=== PATIENT | female | born 1960 | race Caucasian/White ===

== ENCOUNTER → 2022-02-17 | Day surgery (SDC) | payer MEDICARE, MEDICAID ==
[2022-02-16 10:25] LABS: Urine WBC None Seen /hpf (0 - 5)
[2022-02-16 10:34] LABS: Basophils # (auto) 0.1 10 ^3/uL (0-0.2); Basophils % (auto) 0.7 % (0.0-2.0); Eosinophils # (auto) 0 10 ^3/uL (0-0.8); Eosinophils % (auto) 0.5 % (0.0-7.0); Hemoglobin 14.2 g/dL (12.2-16.2); Lymphocytes # (auto) 1.3 10 ^3/uL (0.4-5.4); Mean Corpuscular Hemoglobin 29.9 pg (28.0-32.0); Mean Corpuscular Hgb Conc. 34.7 g/dL (32.0-36.0); Mean Corpuscular Volume 86.2 fL (80.0-100.0); Monocytes # (auto) 0.7 10 ^3/uL (0-1.3); Neutrophils # (auto) 7.2 10 ^3/uL (1.6-8.6); Neutrophils % (auto) 77.8 % (37.0-80.0); Nucleated Red Blood Cells % 0.1 %; Red Blood Cells 4.75 10^6/uL (4.0-5.20); Red Cell Distribution Width 13.4 % (11.8-14.3); White Blood Cell 9.3 10^3/uL (4.4-10.8)
[2022-02-16 10:40] LABS: Urine Bacteria NONE SEEN /hpf (None Seen); Urine Blood Negative /uL (Negative); Urine Specific Gravity 1.002 (1.001-1.035)
[2022-02-16 10:48] LABS: INR 1.05 (0.9-1.15); Partial Thromboplastin Time 25.6 sec (23.6-33.0)
[2022-02-16 11:03] LABS: Albumin 3.9 g/dL (3.4-5.0); Calcium 8.6 mg/dL (8.5-10.1); Potassium 4.2 mmol/L (3.5-5.1)
[2022-02-16 11:06] LABS: BUN/Creatinine Ratio 10.4; Bilirubin, Total 0.7 mg/dL (0.2-1.0); Total Protein 7.3 g/dL (6.4-8.2)
[~2022-02-17] VITALS: Ht 172.7 cm; Wt 109.8 kg
[~2022-02-17] MED LIST: ASCO500T11 PO; BUPIVACAINE HCL 50 ML ONE; CYAN100056 PO; DexAMETHasone SOD PHOS 10MG/1ML VIAL INJ ONE; HYDROmorphone HCL 2 MG/ML VL IV PRN; LANS30CA57 PO; LEFL20TA PO; LISI20TA28 PO; METOCLOPRAMIDE HCL 5MG/ml INJ 2ml VIAL IV PRN; MIDAZOLAM HCL 2MG/2ML 2ml VIAL (1mg/ml) ONE; MONT-8 OR; MORPHINE SULFATE 4 MG/ML SYR/VIAL IV PRN; NEOMYCIN-BACITRACIN-POLYM 15GM TOP OINT TOP ONE; ONDANSETRON HCL 4 MG/2 ML VIAL ONE; POLY33504 PO; POTA10TA51 PO; PROPOFOL 10 MG/ML 20 ML IV ONE; SENN-58 PO; SODIUM CHLORIDE LOCK 10 ML ONE; [UNRECOGNIZED DRUG - CODE] SC; ceFAZolin 1GM/50ML 100 ML IV ONE; fentaNYL CITRATE 100 MCG/2 ML VL IV PRN; fentaNYL CITRATE 100 MCG/2 ML VL ONE
[2022-02-17 09:00] VITALS: BP 142/83
== END | disposition home or self-care (01) ==
LOC: SUR 06:12
PROVIDERS: ATTEND Podiatrist Foot & Ankle Surgery
DX: M89.8X7 Other specified disorders of bone, ankle and foot (principal); M06.9 Rheumatoid arthritis, unspecified; E66.9 Obesity, unspecified; J44.9 Chronic obstructive pulmonary disease, unspecified; I12.9 Hypertensive chronic kidney disease with stage 1 through stage 4 chronic kidney disease, or unspecified chronic kidney disease; N18.2 Chronic kidney disease, stage 2 (mild); L40.9 Psoriasis, unspecified; Z68.37 Body mass index [BMI] 37.0-37.9, adult; Z98.891 History of uterine scar from previous surgery; Z98.890 Other specified postprocedural states; Z88.5 Allergy status to narcotic agent; Z88.8 Allergy status to other drugs, medicaments and biological substances; Z79.899 Other long term (current) drug therapy; Z82.49 Family history of ischemic heart disease and other diseases of the circulatory system; Z20.822 Contact with and (suspected) exposure to COVID-19
CPT/HCPCS: 28104; 36415; 80053; 81001; 85025; 85610; 85730; 88305; 88311; J0690; J1100; J2250; J2405; J2704; J3010; J3490; U0003

== ENCOUNTER → 2023-01-05 | Day surgery (SDC) | payer MEDICARE, MEDICAID ==
[2023-01-04 10:28] LABS: Urine WBC None Seen /hpf (0 - 5)
[2023-01-04 10:42] LABS: Basophils # (auto) 0.1 10 ^3/uL (0-0.2); Eosinophils # (auto) 0.1 10 ^3/uL (0-0.8); Eosinophils % (auto) 1.2 % (0.0-7.0); Hematocrit 45.3 % (36.0-46.0); Hemoglobin 15.7 g/dL (12.2-16.2); Lymphocytes # (auto) 2.1 10 ^3/uL (0.4-5.4); Mean Corpuscular Hemoglobin 30.3 pg (28.0-32.0); Mean Corpuscular Hgb Conc. 34.8 g/dL (32.0-36.0); Mean Corpuscular Volume 87.1 fL (80.0-100.0); Monocytes # (auto) 0.7 10 ^3/uL (0-1.3); Monocytes % (auto) 9.2 % (0.0-12.0); Neutrophils # (auto) 4.6 10 ^3/uL (1.6-8.6); Neutrophils % (auto) 60.6 % (37.0-80.0); Nucleated Red Blood Cells % 0.1 %; Red Cell Distribution Width 13.4 % (11.8-14.3); White Blood Cell 7.5 10^3/uL (4.4-10.8)
[2023-01-04 10:56] LABS: INR 0.99 (0.9-1.15); Partial Thromboplastin Time 27.8 sec (24.6-33.4)
[2023-01-04 11:15] LABS: Urine Bacteria FEW /hpf (None Seen); Urine Blood Negative /uL (Negative); Urine Specific Gravity 1.005 (1.001-1.035)
[2023-01-04 11:25] LABS: Albumin 4.2 g/dL (3.4-5.0); BUN/Creatinine Ratio 13.9; Calcium 8.9 mg/dL (8.5-10.1); Potassium 3.7 mmol/L (3.5-5.1)
[2023-01-04 11:28] LABS: Bilirubin, Total 0.5 mg/dL (0.2-1.0); Total Protein 7.3 g/dL (6.4-8.2)
[~2023-01-05] VITALS: Ht 172.7 cm; Wt 112.0 kg
[~2023-01-05] MED LIST changes: +BACITRACIN TOP OINT 1 UD PKG TOP ONE; +BUPIVACAINE 0.5% P/F INJ 10 ML VIAL ONE; -BUPIVACAINE HCL 50 ML ONE; +CHLO25TA2 PO; +CLINDAMYCIN 600MG IV 50 ML IV ONE; +DEXL30CA4 PO; +DILT-15 PO; -DexAMETHasone SOD PHOS 10MG/1ML VIAL INJ ONE; +FLUT110A IN; -HYDROmorphone HCL 2 MG/ML VL IV PRN; -LANS30CA57 PO; +LINA1CAP2 PO; -LISI20TA28 PO; +MAGN400T40 OR; -METOCLOPRAMIDE HCL 5MG/ml INJ 2ml VIAL IV PRN; -MORPHINE SULFATE 4 MG/ML SYR/VIAL IV PRN; +MORPHINE SULFATE INJ 2 MG/ml SYRG IV PRN; -NEOMYCIN-BACITRACIN-POLYM 15GM TOP OINT TOP ONE; +ONDANSETRON HCL 4 MG/2 ML VIAL IV PRN; -ONDANSETRON HCL 4 MG/2 ML VIAL ONE; -SODIUM CHLORIDE LOCK 10 ML ONE; -ceFAZolin 1GM/50ML 100 ML IV ONE; -fentaNYL CITRATE 100 MCG/2 ML VL IV PRN; +methylPREDNISolone ACETATE 80 MG/ML VL ONE
[2023-01-05 11:15] VITALS: BP 142/81
== END | disposition home or self-care (01) ==
LOC: SUR 06:51
PROVIDERS: ATTEND Podiatrist Foot & Ankle Surgery
DX: M25.571 Pain in right ankle and joints of right foot (principal); M67.271 Synovial hypertrophy, not elsewhere classified, right ankle and foot; Z20.822 Contact with and (suspected) exposure to COVID-19
CPT/HCPCS: 27626; 36415; 80053; 81001; 85025; 85610; 85730; 88305; J1040; J2250; J2704; J3010; J3490; L3260; U0003

== ENCOUNTER 2023-06-01 06:41 | Day surgery (SDC) | payer MEDICARE, MEDICAID ==
[2023-05-26 13:59] LABS: Basophils # (auto) 0 10 ^3/uL (0-0.2); Basophils % (auto) 0.7 % (0.0-2.0); Eosinophils # (auto) 0.1 10 ^3/uL (0-0.8); Eosinophils % (auto) 1.2 % (0.0-7.0); Hematocrit 41.8 % (36.0-46.0); Hemoglobin 14.2 g/dL (12.2-16.2); Lymphocytes # (auto) 1.6 10 ^3/uL (0.4-5.4); Lymphocytes % (auto) 28.4 % (10.0-50.0); Mean Corpuscular Hemoglobin 29.8 pg (28.0-32.0); Mean Corpuscular Hgb Conc. 33.9 g/dL (32.0-36.0); Mean Corpuscular Volume 87.7 fL (80.0-100.0); Monocytes # (auto) 0.5 10 ^3/uL (0-1.3); Monocytes % (auto) 8.5 % (0.0-12.0); Neutrophils # (auto) 3.4 10 ^3/uL (1.6-8.6); Neutrophils % (auto) 61.2 % (37.0-80.0); Nucleated Red Blood Cells % 0.1 %; Red Blood Cells 4.77 10^6/uL (4.0-5.20); Red Cell Distribution Width 13.6 % (11.8-14.3); White Blood Cell 5.6 10^3/uL (4.4-10.8)
[2023-05-26 14:13] LABS: Urine Bacteria FEW /hpf (None Seen); Urine Blood Negative /uL (Negative); Urine Clarity Clear (Clear); Urine Color Colorless (Yellow); Urine Protein, UAD Negative (Negative); Urine Specific Gravity 1.005 (1.001-1.035); Urine Urobilinogen Normal (Negative); Urine WBC <1 /hpf (0 - 5); Urine pH 6.5 (5.0-8.0)
[2023-05-26 14:16] LABS: INR 1.03 (0.9-1.15); Prothrombin Time 10.8 sec (9.3-11.8)
[2023-05-26 14:23] LABS: Albumin 3.9 g/dL (3.4-5.0); Potassium 3.5 mmol/L (3.5-5.1)
[2023-05-26 14:33] LABS: Bilirubin, Total 0.6 mg/dL (0.2-1.0); Total Protein 6.9 g/dL (6.4-8.2)
[~2023-06-01] VITALS: Ht 172.7 cm; Wt 111.1 kg
[~2023-06-01 06:41] MED LIST changes: -BACITRACIN TOP OINT 1 UD PKG TOP ONE; -BUPIVACAINE 0.5% P/F INJ 10 ML VIAL ONE; -CLINDAMYCIN 600MG IV 50 ML IV ONE; -MIDAZOLAM HCL 2MG/2ML 2ml VIAL (1mg/ml) ONE; -MORPHINE SULFATE INJ 2 MG/ml SYRG IV PRN; -ONDANSETRON HCL 4 MG/2 ML VIAL IV PRN; -PROPOFOL 10 MG/ML 20 ML IV ONE; -fentaNYL CITRATE 100 MCG/2 ML VL ONE; -methylPREDNISolone ACETATE 80 MG/ML VL ONE
[2023-06-01] MEDS ORDERED: KETAMINE 50mg/ML 10ml Vial (500mg/10ml) IV ONE (06:42)
[2023-06-01] MEDS ORDERED: ceFAZolin 1GM/50ML 100 ML IV ONE (07:35)
[2023-06-01] MEDS ORDERED: PROPOFOL 10 MG/ML 20 ML IV ONE ×2 (07:49→08:55)
[2023-06-01] MEDS ORDERED: DexAMETHasone SOD PHOS 10MG/1ML VIAL INJ ONE (07:50)
[2023-06-01] MEDS ORDERED: KETOROLAC TROMETH 30 MG/ML 1ML VIAL ONE (07:50)
[2023-06-01] MEDS ORDERED: GLYCOPYRROLATE 0.2 MG/ML 1ML VIAL ONE (07:50)
[2023-06-01] MEDS ORDERED: ONDANSETRON HCL 4 MG/2 ML VIAL ONE (07:50)
[2023-06-01] MEDS ORDERED: ROPIVACAINE 0.5% (5MG/ML) 20ML AMPULE IJ ONE (08:07)
[2023-06-01] MEDS ORDERED: ESMOLOL HCL 10 ML IV ONE (08:59)
[2023-06-01] MEDS ORDERED: LIDOCAINE 2%HCL (LOCAL ANESTH.) INJ 10ml MDV ONE (08:59)
[2023-06-01 09:22] VITALS: TEMP 97.1; O2SAT 100
[2023-06-01] MEDS ORDERED: NALOXONE HCL 0.4 MG/ML VIAL IV PRN (09:30)
[2023-06-01] MEDS ORDERED: oxyCODONE HCL 5MG TAB PO PRN (09:30)
[2023-06-01] MEDS ORDERED: ONDANSETRON HCL 4 MG/2 ML VIAL IV PRN (09:30)
[2023-06-01] MEDS ORDERED: HYDROmorphone HCL 2 MG/ML VL/or syr IV PRN (09:30)
[2023-06-01] MEDS ORDERED: FLUMAZENIL 0.1 MG/ML INJ 10ML MDV IV PRN (09:30)
[2023-06-01] MEDS ORDERED: fentaNYL CITRATE 100 MCG/2 ML VL IV PRN (09:30)
[2023-06-01] MEDS ORDERED: LABETALOL HCL 5 MG/ML 4ML SYRINGE IV PRN (09:30)
[2023-06-01] MEDS ORDERED: hydrALAZINE HCL 20 MG/ML VL IV PRN (09:30)
[2023-06-01] MEDS ORDERED: ePHEDrine SULFATE 50 MG/ML AMP IV PRN (09:30)
[2023-06-01 10:27] VITALS: BP 136/84; PULSE 63; RESP 15; O2SAT 98
== END 2023-06-01 10:32 | disposition home or self-care (01) ==
LOC: SUR 06:41
PROVIDERS: ATTEND Podiatrist Foot & Ankle Surgery
DX: M20.5X2 Other deformities of toe(s) (acquired), left foot (principal); M20.22 Hallux rigidus, left foot; M25.775 Osteophyte, left foot; M19.072 Primary osteoarthritis, left ankle and foot; M79.672 Pain in left foot; E11.8 Type 2 diabetes mellitus with unspecified complications
CPT/HCPCS: 28289; 36415; 80053; 81001; 85025; 85610; 85730; 88305; 88311; J0690; J1100; J1170; J1885; J2001; J2405; J2704; J2795

== ENCOUNTER → 2023-10-05 | Day surgery (SDC) | payer MEDICARE, MEDICAID ==
[2023-10-04 15:06] LABS: Urine WBC None Seen /hpf (0 - 5)
[2023-10-04 15:10] LABS: Basophils # (auto) 0.1 10 ^3/uL (0-0.2); Basophils % (auto) 1.1 % (0.0-2.0); Eosinophils # (auto) 0.2 10 ^3/uL (0-0.8); Hematocrit 43.7 % (36.0-46.0); Hemoglobin 14.9 g/dL (12.2-16.2); Lymphocytes # (auto) 2.7 10 ^3/uL (0.4-5.4); Lymphocytes % (auto) 35.4 % (10.0-50.0); Mean Corpuscular Hemoglobin 30.3 pg (28.0-32.0); Mean Corpuscular Hgb Conc. 34.1 g/dL (32.0-36.0); Mean Corpuscular Volume 88.8 fL (80.0-100.0); Monocytes # (auto) 0.7 10 ^3/uL (0-1.3); Monocytes % (auto) 8.8 % (0.0-12.0); Neutrophils # (auto) 4.1 10 ^3/uL (1.6-8.6); Neutrophils % (auto) 52.7 % (37.0-80.0); Nucleated Red Blood Cells % 0.2 %; Red Blood Cells 4.92 10^6/uL (4.0-5.20); Red Cell Distribution Width 13.4 % (11.8-14.3); White Blood Cell 7.7 10^3/uL (4.4-10.8)
[2023-10-04 15:21] LABS: Urine Bacteria NONE SEEN /hpf (None Seen); Urine Blood Negative /uL (Negative); Urine Clarity Clear (Clear); Urine Color Colorless (Yellow); Urine Protein, UAD Negative (Negative); Urine Specific Gravity 1.004 (1.001-1.035); Urine Urobilinogen Normal (Negative)
[2023-10-04 15:27] LABS: INR 1.02 (0.9-1.15); Partial Thromboplastin Time 25.6 SEC (24.5-34.5); Prothrombin Time 10.7 sec (9.3-11.8)
[2023-10-04 16:57] LABS: Alanine Aminotransferase 42 U/L (7-40); Albumin 4.8 g/dL (3.2-4.8); Alkaline Phosphatase 42 U/L (46-116); Anion Gap 8 (5-15); Aspartate Aminotransferase 32 U/L (13-40); BUN/Creatinine Ratio 10.3 (10.0-20.0); Blood Urea Nitrogen 11 mg/dL (9-23); Calcium 9.9 mg/dL (8.5-10.1); Carbon Dioxide 28 mmol/L (20-30); Chloride 106 mmol/L (98-107); Glucose 88 mg/dL (74-106); Potassium 4.4 mmol/L (3.5-5.1); Sodium 142 mmol/L (136-145)
[2023-10-04 16:58] LABS: Bilirubin, Total 0.5 mg/dL (0.2-1.0)
[~2023-10-05] VITALS: Ht 172.7 cm; Wt 113.4 kg
[~2023-10-05] MED LIST changes: -ASCO500T11 PO; +BACITRACIN TOP OINT 1 UD PKG TOP ONE; +CLINDAMYCIN 600MG IV 50 ML IV ONE; -DEXL30CA4 PO; -DILT-15 PO; +GLYCOPYRROLATE 0.2 MG/ML 1ML VIAL ONE; +GOLI50SO IV; +HYDROmorphone HCL 2 MG/ML VL/or syr IV PRN; +KETOROLAC TROMETH 30 MG/ML 1ML VIAL ONE; +LANS30TA8 PO; +LIDOCAINE 1% HCL (LOCAL ANESTH.) INJ 20ML MDV ONE; +LIDOCAINE 2% (LOCAL ANESTH.) PF 5ml SDV ONE; +MIDAZOLAM HCL 2MG/2ML 2ml VIAL (1mg/ml) ONE; -MONT-8 OR; +OLME1TAB69 PO; +ONDANSETRON HCL 4 MG/2 ML VIAL IV PRN; +ONDANSETRON HCL 4 MG/2 ML VIAL ONE; -POLY33504 PO; +PROPOFOL 10 MG/ML 20 ML IV ONE; +RIVA20TA PO; +ROPIVACAINE 0.5% (5MG/ML) 20ML AMPULE IJ ONE; -SENN-58 PO; -[UNRECOGNIZED DRUG - CODE] SC; +ceFAZolin 2 GM/D5W100ml 100 ML IV ONE
[2023-10-05 08:14] VITALS: RESP 17; TEMP 97.6; O2SAT 100
[2023-10-05 09:09] VITALS: BP 132/81; PULSE 82; RESP 11; O2SAT 97
== END | disposition home or self-care (01) ==
LOC: SUR 06:22
PROVIDERS: ATTEND Podiatrist Foot & Ankle Surgery
DX: M25.774 Osteophyte, right foot (principal); I10 Essential (primary) hypertension; K21.9 Gastro-esophageal reflux disease without esophagitis; K44.9 Diaphragmatic hernia without obstruction or gangrene; I48.91 Unspecified atrial fibrillation; M89.9 Disorder of bone, unspecified; Z88.8 Allergy status to other drugs, medicaments and biological substances; Z88.6 Allergy status to analgesic agent; Z79.899 Other long term (current) drug therapy; Z98.890 Other specified postprocedural states
CPT/HCPCS: 28122; 36415; 80053; 81001; 85025; 85610; 85730; J1885; J2001; J2250; J2405; J2704; J2795; J3490; L3260

== ENCOUNTER 2025-05-22 10:01 | Inpatient (IN) | payer MEDICARE, MEDICAID ==
[~2025-05-22] VITALS: Ht 167.6 cm; Wt 112.0 kg
[~2025-05-22 10:01] MED LIST changes: -BACITRACIN TOP OINT 1 UD PKG TOP ONE; -CLINDAMYCIN 600MG IV 50 ML IV ONE; -GLYCOPYRROLATE 0.2 MG/ML 1ML VIAL ONE; -HYDROmorphone HCL 2 MG/ML VL/or syr IV PRN; -KETOROLAC TROMETH 30 MG/ML 1ML VIAL ONE; -LIDOCAINE 1% HCL (LOCAL ANESTH.) INJ 20ML MDV ONE; -LIDOCAINE 2% (LOCAL ANESTH.) PF 5ml SDV ONE; -MIDAZOLAM HCL 2MG/2ML 2ml VIAL (1mg/ml) ONE; -OLME1TAB69 PO; +OLME5TAB22 PO; -ONDANSETRON HCL 4 MG/2 ML VIAL IV PRN; -ONDANSETRON HCL 4 MG/2 ML VIAL ONE; +POTA-36 PO; -POTA10TA51 PO; -PROPOFOL 10 MG/ML 20 ML IV ONE; -ROPIVACAINE 0.5% (5MG/ML) 20ML AMPULE IJ ONE; -ceFAZolin 2 GM/D5W100ml 100 ML IV ONE
--- NOTE | 2025-05-22 11:06 | ECG ---
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
--- NOTE | 2025-05-22 11:08 | ED.PDOC ---
History of Present Illness HPI Comments Patient is a 64-year-old female with a past medical history of rheumatoid arthritis, hypertension, atrial fibrillation, fatty liver presented to the ER with a chief complaint of dizziness with the last week. 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 Patient denied any episode of loss of consciousness. With the last 2 days she has also been having headache across her forehead which is wxnjwlkf-uw-izpije in intensity, nausea, diarrhea with 2 episode of loose stools per day, uyln-ut-upgfyvdg abdominal pain above the umbilical area. Chief Complaint: Dizziness Time Seen by MD: 10:07 Primary Care Provider: Herlinda Cook Reviewed Notes: Nurses Notes, Medications, Allergies Allergies: Coded Allergies: Ceftriaxone (Verified Allergy, Unknown, 06/19/15) Codeine (Verified Allergy, Unknown, 06/19/15) Levofloxacin (Verified Allergy, Unknown, 06/19/15) Home Meds Reported Medications Golimumab (SIMPONI ARIA) 50 Mg/4 Ml Aimee, 50 MG IV Q2M, ML 10/04/23 Lansoprazole (Lansoprazole) 30 Mg Tab, 30 MG PO DAILY, TAB 10/04/23 Olmesartan Medoxomil (Olmesartan Medoxomil) 5 Mg Tab, 5 MG PO DAILY, TAB 10/04/23 Rivaroxaban (XARELTO) 20 Mg Tab, 20 MG PO DAILY, TAB 10/04/23 Fluticasone Propionate (FLOVENT HFA 110Mcg INH) 110 Mcg Ih, 50 MCG IN DAILY, INH 01/04/23 Magnesium Oxide (MAGNESIUM OXIDE) 400 Mg Tab, 400 MG OR DAILY, TAB 01/04/23 Linaclotide Base (Linzess) 72 Mcg Cap, 72 MCG PO, CAP 01/04/23 Chlorthalidone (Chlorthalidone) 25 Mg Tab, 25 MG PO DAILY, TAB 01/04/23 Leflunomide (Arava) 20 Mg Tab, 20 MG PO, TAB 02/16/22 Cyanocobalamin (B-12) 1,000 Mcg Cap, 1000 MCG PO, CAP 02/16/22 Potassium Chloride (POTASSIUM CHLORIDE CR) 10 Meq Tb, 10 MEQ PO, TAB 02/16/22 Information Source: Patient Mode of Arrival: Ambulatory Past Medical History PAST MEDICAL HISTORY: AFIB, Arthritis, HTN Past Medical History (Other): Fatty liver Surgical History: Hysterectomy (Partial) Surgical History (Other): Right toe amputation, surgery for carpal tunnel syndrome LEAD PRINCIPAL TECHNICAL ARCHITECT History: No Pertinent LEAD PRINCIPAL TECHNICAL ARCHITECT History Family History Family History: Unobtainable Social History Smoker: Non-Smoker Alcohol: Denies ETOH Use Drugs: Denies Drug Use Lives In: Home Constitutional: reports: fatigue, weakness EENTM: denies: blurred vision, double vision, ear bleeding, ear discharge, ear drainage, ear pain, ear ringing, eye pain, eye redness, hearing loss, mouth pain, mouth swelling, nasal discharge, nose bleeding, nose congestion, nose pain, photophobia, tearing, throat pain, throat swelling, voice changes, others Respiratory: denies: cough, hemoptysis, orthopnea, SOB at rest, shortness of breath, SOB with excertion, stridor, wheezing, others Cardiovascular: reports: dizzy spells, Dyspnea on exertion Gastrointestinal: reports: abdominal pain, diarrhea, nausea Genitourinary: denies: abnormal vagina bleeding, burning, dyspareunia, dysuria, flank pain, frequency, hematuria, incontinence, pain, , vagina discharge, urgency, others Neurological: reports: dizziness Musculoskeletal: denies: back pain, gout, joint pain, joint swelling, muscle pain, muscle stiffness, neck pain, others Integumetry: denies: bruises, change in color, change in hair/nails, dryness, laceration, lesions, lumps, rash, wounds, others Allergic/Immunocompromised: denies: Difficulty Healing, Frequent Infections, Hives, Itching, others Hematologic/Lymphatic: denies: anemia, blood clots, easy bleeding, easy bruising, swollen glands, others Endocrine: denies: excessive hunger, excessive sweating, excessive thirst, excessive urination, flushing, intolerance to cold, intolerance to heat, unexplained weight gain, unexplained weight loss, others Psychiatric: denies: anxiety, bipolar disorder, depression, hopeless, panic disorder, schizophrenia, sleepless, suicidal, others Physical Exam General Appearance: Mild Distress, Obese HEENT: PERRL/EOMI, Pharynx Normal Neck: Full Range of Motion, Non-Tender, Normal Inspection Respiratory: Chest Non-Tender, Lungs Clear, No Accessory Muscle Use, No Respiratory Distress, Normal Breath Sounds Cardiovascular: No Edema, No JVD, No Murmur, No Gallop, Normal Peripheral Pulses, Regular Rate/Rhythm Breast Exam: Deferred Gastrointestinal: No Organomegaly, No Pulsatile Mass, Normal Bowel Sounds, Soft , Tenderness (Mid abdomen ficf-ye-whjkjhyx tenderness) Genitalia: Deferred Pelvic: Deferred Rectal: Deferred Extremities: No calf tenderness, Normal capillary refill, Normal inspection, Normal range of motion, Non-tender, No pedal edema Neurologic: Alert, health safety coordinator II-XII nml as Tested, Dizziness, Headache, No Motor Deficits, No Sensory Deficits Cerebellar Function: Other (Positive Romberg's,) Reflexes: NOT DONE Skin: Dry, Normal Color, Warm Peripheral Pulses: 2+ carotid (R), 2+ carotid (L), 2+ dorsalis pedis (R), 2+ dorsalis pedis (L), 2+ Radial (R), 2+ Radial (L) Lymphatic: No Adenopathy Was a procedure done? Was a procedure done?: No EKG EKG : Pulse Rate (adult): 69 Bradley: Normal Cardiac Rhythm: NSR Block: RBBB Hypertrophy: None ST: Old, Inf Differential Dx Considerations may include: Acute stroke, electrolyte imbalance, dehydration, UTI, gastroenteritis, X-Ray, Labs, Meds, VS Vital Signs Date Time Temp Pulse Resp B/P (MAP) Pulse Ox O2 Delivery O2 Flow Rate FiO2 05/22/25 10:52 69 05/22/25 10:02 97.5 88 17 176/85 (115) 97 97.5 Lab Test 05/22/25 11:59 05/22/25 11:01 05/22/25 10:41 Range/Units Troponin I High Sensitivity Pending < 3 L </=34 ng/L White Blood Count 4.8 4.4-10.8 10^3/uL Red Blood Count 5.01 4.0-5.20 10^6/uL Hemoglobin 15.3 12.2-16.2 g/dL Hematocrit 44.2 36.0-46.0 % Mean Corpuscular Volume 88.2 80.0-100.0 fL Mean Corpuscular Hemoglobin 30.5 28.0-32.0 pg Mean Corpuscular Hemoglobin Concent 34.6 32.0-36.0 g/dL Red Cell Distribution Width 13.7 11.8-14.3 % Platelet Count 225 140-450 10^3/uL Mean Platelet Volume 8.1 6.9-10.8 fL Neutrophils (%) (Auto) 76.5 37.0-80.0 % Lymphocytes (%) (Auto) 19.5 10.0-50.0 % Monocytes (%) (Auto) 2.6 0.0-12.0 % Eosinophils (%) (Auto) 0.8 0.0-7.0 % Basophils (%) (Auto) 0.6 0.0-2.0 % Neutrophils # (Auto) 3.6 1.6-8.6 10 ^3/uL Lymphocytes # (Auto) 0.9 0.4-5.4 10 ^3/uL Monocytes # (Auto) 0.1 0-1.3 10 ^3/uL Eosinophils # (Auto) 0 0-0.8 10 ^3/uL Basophils # (Auto) 0 0-0.2 10 ^3/uL Nucleated Red Blood Cells 0.1 % Sodium Level 141 136-145 mmol/L Potassium Level 4.2 3.5-5.1 mmol/L Chloride Level 106 98-107 mmol/L Carbon Dioxide Level 29 20-31 mmol/L Anion Gap 6 5-15 Blood Urea Nitrogen 13 9-23 mg/dL Creatinine 1.07 H 0.550-1.02 mg/dL Glomerular Filtration Rate Calc 58 >90 mL/min BUN/Creatinine Ratio 12.1 10.0-20.0 Serum Glucose 113 H 74-106 mg/dL Calcium Level 9.6 8.7-10.4 mg/dL POC Glucose 92 70-106 mg/dl Patient is a 64-year-old female who came to the ER with a chief complaint of dizziness for the last 2 week. On physical examination patient was found to have a positive Romberg's test following which CT head without contrast was done which showed right cerebellar encephalomalacia. Labs including CBC and BMP were grossly normal. As the patient had positive neurological findings and abnormality on CT head showed benefit from Neurological evaluation and a MRI. Neurology will be consulted. Patient was explained about the findings and discussed with the need of inpatient management. She agrees with the plan. Time of 1ST Reevaluation: 12:11 Reevaluation 1ST: Unchanged Patient Education/Counseling: Diagnosis, Treatment, Prognosis Family Education/Counseling: No Family Present SEPSIS Sepsis Screen Date sepsis recognized/suspect: May 22, 2025 Time Sepsis recognized/suspect: 1044 Recent Procedure: No On Antibiotic Therapy: No Respiratory Rate >20: No Heart Rate >90: No Temp<36 C (96.8 F) or >38.3 C: No SBP <90 or MAP <65 mmHG: No New Acute Mental Status Change: No Is the patient on CPAP, BIPAP,: No Physician Orders Urinalysis (05/22/25 10:47) Heplock Iv (05/22/25 10:47) Head Without Contrast (05/22/25 10:47) Troponin-I Hs (05/22/25 11:51) Electrocardigram (05/22/25 12:00) Vital Signs Date Time Temp Pulse Resp B/P (MAP) Pulse Ox O2 Delivery O2 Flow Rate FiO2 05/22/25 10:52 69 05/22/25 10:02 97.5 88 17 176/85 (115) 97 97.5 Laboratory Tests Test 05/22/25 11:01 White Blood Count 4.8 10^3/uL (4.4-10.8) Departure 1 Departure Time of Disposition: 12:30 Impression: Primary Impression: Dizziness Additional Impression: Dehydration Disposition: ADMITTED INPATIENT Condition: Stable Critical Care Note Critical Care Time?: No Stability Stability form required: No Heart Score Heart Score: Heart Score Response (Comments) Value History Slightly Suspicious [address]-Deviation 2 Age 45-64 1 Risk Factors 1 or 2 risk factors 1 Troponin Normal limit 0 Total 4 RAZ REDDY RESIDENT May 22, 2025 11:07
[2025-05-22 11:26] LABS: Hematocrit 44.2 % (36.0-46.0); Hemoglobin 15.3 g/dL (12.2-16.2); Mean Corpuscular Hemoglobin 30.5 pg (28.0-32.0); Mean Corpuscular Volume 88.2 fL (80.0-100.0); Nucleated Red Blood Cells % 0.1 %
[2025-05-22 11:30] LABS: Chloride 106 mmol/L (98-107); Potassium 4.2 mmol/L (3.5-5.1); Sodium 141 mmol/L (136-145)
[2025-05-22 11:31] LABS: Anion Gap 6 (5-15); Carbon Dioxide 29 mmol/L (20-31)
[2025-05-22 11:32] LABS: Calcium 9.6 mg/dL (8.7-10.4)
[2025-05-22 11:37] LABS: BUN/Creatinine Ratio 12.1 (10.0-20.0); Blood Urea Nitrogen 13 mg/dL (9-23)
[2025-05-22 11:38] LABS: Glucose 113 mg/dL (74-106)
--- NOTE | 2025-05-22 11:42 | DVH ---
EXAM: CT HEAD WITHOUT CONTRAST INDICATION: Dizziness, positive romberg TECHNIQUE: CT of the head without intravenous contrast. Coronal and sagittal reformatted images are s ubmitted. Radiation Dose : 1. Head: CT Dose: CTDI volume is 56.8 mGy. Dose-length product is 1117.7 mGy*cm The dose indicators for CT are the volume Computed Tomography (CT) Dose Index (CTDIvol) and the Dose Length Product (DLP), and are measured in units of mGy and mGy-cm, respectively. These indicators are not patient dose, but values generated from the CT scanner acquisition factors. The report includes radiation exposure data for exposures received during this examination. All CT scans at this medical facility are performed using dose modulation techniques as appropriate to a performed exam including the following: Automated exposure control was utilized; adjustment of the MA and/or KV according to patient size; and use of iterative reconstruction technique. COMPARISON: None FINDINGS: There is no evidence of acute intracranial hemorrhage, extra-axial collection, mass effect, midline s hift, herniation or hydrocephalus. Right cerebellar encephalomalacia. The ventricles, sulci and cisterns are age appropriate. The heath-white differentiation is intact. There is mucosal thickening in the left maxillary sinus. The mastoid air cells are clear. No depressed calvarial fracture. The surrounding soft tissues are unremarkable. IMPRESSION: 1. No acute intracranial abnormality.
[2025-05-22] MEDS: SODIUM CHLORIDE 0.9% 500 ML IV ONE (12:45)
[2025-05-22 13:05] LABS: Urine Protein, UAD Negative (Negative)
[2025-05-22] MEDS ORDERED: hydrALAZINE HCL 20 MG/ML VL IV PRN (13:30)
[2025-05-22] MEDS ORDERED: ONDANSETRON HCL 4 MG/2 ML VIAL IV PRN (13:30)
[2025-05-22] MEDS ORDERED: ACETAMINOPHEN 325 MG TAB PO PRN (13:30)
[2025-05-22] MEDS ORDERED: MECLIZINE HCL 25 MG TAB PO PRN (13:45)
[2025-05-22] MEDS: SODIUM CHLOR 0.9% PF (SALINE LOCK) 10ML VIAL/SYR IV SCH (14:17)
--- NOTE | 2025-05-22 15:47 | DVHHP2 ---
History of Present Illness Reason for Visit: Dizziness History of Present Illness The patient is a 64-year-old female with past medical history of AFib, arthritis, fatty liver, and hypertension who presented to [facility] with complaint of dizziness for the past 1 week. Patient reports she has been experiencing hydration, dizzy spells, dyspnea on exertion, headache, fatigue, abdominal pain, nausea, diarrhea, generalized weakness, getting worse that prompted this visit. Patient was seen and evaluated in the ED, laboratory data shows WBC 4.8, platelets 225, sodium 141, potassium 4.2, BUN 13, creatinine 1.07, glucose 113, calcium 9.6, troponin 3, blood pressure 150/62, heart rate 84, temperature 98.8 F, O2 saturation 97% room air. Head CT showed no acute intracranial abnormality. Please see medication orders section in the computer. On my assessment, patient denied chest pain, no headache, no dizziness at this moment, no diaphoresis, no shortness of breath, no nausea, no vomiting, no fever, no chills. Patient was admitted for further evaluation and medical management. Past Medical History AFIB, Arthritis, HTN, Fatty liver Past Surgical History Hysterectomy (Partial), Right toe amputation, Surgery for carpal tunnel syndrome Family History Reviewed, noncontributory to the management of this case. Past Social History The patient lives at home, denies smoking, alcohol or illicit drugs abuse. Review of Systems Constitutional: Yes: Weakness, Other (Fatigue); No: Fever, Chills, Sweats, Malaise Eyes: No: Pain, Vision change, Conjunctivae inflammation, Eyelid inflammation, Other, Redness ENT: No: Ear pain, Ear discharge, Nose pain, Nose discharge, Nose congestion, Mouth pain, Mouth swelling, Throat pain, Throat swelling, Other Respiratory: No: Cough, Dry, Shortness of breath, SOB with excertion, Wheezing, Hemoptysis, Pleuritic Pain, Sputum, Wheezing, Other Cardiovascular: Other (Dizzy spell, dyspnea on exertion.); No: Chest Pain, Palpitations, Orthopnea, Paroxysmal Noc. Dyspnea, Edema, Lt Headedness Gastrointestinal: Nausea, Abdominal Pain, Diarrhea; No: Vomiting, Constipation, Melena, Hematochezia, Other Genitourinary: No Dysuria, No Frequency, No Incontinence, No Hematuria, No Retention, No Other Musculoskeletal: No: other, neck pain, shoulder pain, arm pain, back pain, hand pain, leg pain, foot pain Skin: No: Rash, Lesions, Jaundice, Bruising, Other Neurological: Other (Dizziness); No: Weakness, Numbness, Incoordination, Change in speech, Confusion, Seizures Allergies: Coded Allergies: Ceftriaxone (Verified Allergy, Unknown, 06/19/15) Codeine (Verified Allergy, Unknown, 06/19/15) Levofloxacin (Verified Allergy, Unknown, 06/19/15) Medications Current Medications Medications Dose Ordered Sig/Telma Route Start Time Stop Time Status Last Admin Dose Admin Rivaroxaban 20 mg QPM PO 05/22/25 18:00 Hydralazine HCl 10 mg Q6HP PRN IV 05/22/25 13:30 Sodium Chloride 10 ml Q8HR IV 05/22/25 14:00 05/22/25 14:17 10 ML Ondansetron HCl 4 mg Q4HP PRN IV 05/22/25 13:30 Docusate Sodium 100 mg BIDPRN PRN PO 05/22/25 13:30 Acetaminophen 650 mg Q6HP PRN PO 05/22/25 13:30 Meclizine HCl 25 mg Q8HPRN PRN PO 05/22/25 13:45 Exam Vital Signs Vital Signs Date Time Temp Pulse Resp B/P (MAP) Pulse Ox O2 Delivery O2 Flow Rate FiO2 05/22/25 12:46 84 20 97 Room Air 05/22/25 12:46 98.5 151/81 (104) 98.5 General Appearance: Alert, Oriented X3, Cooperative, No acute distress HEENT: Atraumatic, PERRLA, EOMI, Mucous membr. moist/pink Respiratory: Normal air movement Cardiovascular: Regular rate, Normal S1, Normal S2, No murmurs Abdominal: Normal bowel sounds, Soft, No tenderness, No hepatospenomegaly, No masses Extremities: No clubbing, No cyanosis, No edema, Normal pulses, No tenderness/swelling Skin: No rashes, No significant lesion Neuro: Normal speech, Normal tone, Sensation intact, Cranial nerves 3-12 NL, Reflexes 2+, Other (Generalized weakness) Psych/Mental Status: Mental status NL, Mood NL Labs/Xrays Labs Test 05/22/25 12:55 05/22/25 11:59 05/22/25 11:01 05/22/25 10:41 Range/Units Urine Color Colorless Yellow Urine Clarity Clear Clear Urine pH 7.0 5.0-9.0 Urine Specific [place] 1.005 1.001-1.035 Urine Protein Negative Negative Urine Ketones Negative Negative Urine Blood Negative Negative /uL Urine Nitrite Negative Negative Urine Bilirubin Negative Negative Urine Urobilinogen Normal Negative mg/dL Urine Leukocyte Esterase Negative Negative /uL Urine RBC 1 0 - 4 /hpf Urine Microscopic WBC < 1 0-5 /HPF Urine Squamous Epithelial Cells None seen <5 /hpf Urine Bacteria None seen None Seen /hpf Urine Glucose Normal Normal mg/dL Troponin I High Sensitivity < 3 L </=34 ng/L White Blood Count 4.8 4.4-10.8 10^3/uL Red Blood Count 5.01 4.0-5.20 10^6/uL Hemoglobin 15.3 12.2-16.2 g/dL Hematocrit 44.2 36.0-46.0 % Mean Corpuscular Volume 88.2 80.0-100.0 fL Mean Corpuscular Hemoglobin 30.5 28.0-32.0 pg Mean Corpuscular Hemoglobin Concent 34.6 32.0-36.0 g/dL Red Cell Distribution Width 13.7 11.8-14.3 % Platelet Count 225 140-450 10^3/uL Mean Platelet Volume 8.1 6.9-10.8 fL Neutrophils (%) (Auto) 76.5 37.0-80.0 % Lymphocytes (%) (Auto) 19.5 10.0-50.0 % Monocytes (%) (Auto) 2.6 0.0-12.0 % Eosinophils (%) (Auto) 0.8 0.0-7.0 % Basophils (%) (Auto) 0.6 0.0-2.0 % Neutrophils # (Auto) 3.6 1.6-8.6 10 ^3/uL Lymphocytes # (Auto) 0.9 0.4-5.4 10 ^3/uL Monocytes # (Auto) 0.1 0-1.3 10 ^3/uL Eosinophils # (Auto) 0 0-0.8 10 ^3/uL Basophils # (Auto) 0 0-0.2 10 ^3/uL Nucleated Red Blood Cells 0.1 % Sodium Level 141 136-145 mmol/L Potassium Level 4.2 3.5-5.1 mmol/L Chloride Level 106 98-107 mmol/L Carbon Dioxide Level 29 20-31 mmol/L Anion Gap 6 5-15 Blood Urea Nitrogen 13 9-23 mg/dL Creatinine 1.07 H 0.550-1.02 mg/dL Glomerular Filtration Rate Calc 58 >90 mL/min BUN/Creatinine Ratio 12.1 10.0-20.0 Serum Glucose 113 H 74-106 mg/dL Calcium Level 9.6 8.7-10.4 mg/dL POC Glucose 92 70-106 mg/dl PATIENT: CHAUNCEY KOENIG AACCT: [id number] UNIT: [id number] : 1960 LOC: ER ROOM / BED: / AGE / SEX: 64 / F ADM STATUS: REG ER SERVICE 1047 ORDERING PHYSICIAN: RAZ REDDY RESIDENT PROCEDURE(s): HWOCT - HEAD WITHOUT CONTRAST REASON: dizziness, positive romberg ORDER NUMBER(s): [id number], ACCESSION NUMBER(s): [id number] EXAM: CT HEAD WITHOUT CONTRAST INDICATION: Dizziness, positive romberg TECHNIQUE: CT of the head without intravenous contrast. Coronal and sagittal reformatted images are submitted. Radiation Dose: 1. Head: CT Dose: CTDI volume is 56.8 mGy. Dose-length product is 1117.7 mGy*cm The dose indicators for CT are the volume Computed Tomography (CT) Dose Index (CTDIvol) and the Dose Length Product (DLP), and are measured in units of mGy and mGy-cm, respectively. These indicators are not patient dose, but values generated from the CT scanner acquisition factors. The report includes radiation exposure data for exposures received during this examination. All CT scans at this medical facility are performed using dose modulation techniques as appropriate to a performed exam including the following: Automated exposure control was utilized; adjustment of the MA and/or KV according to patient size; and use of iterative reconstruction technique. COMPARISON: None FINDINGS: There is no evidence of acute intracranial hemorrhage, extra-axial collection, mass effect, midline shift, herniation or hydrocephalus. Right cerebellar encephalomalacia. The ventricles, sulci and cisterns are age appropriate. The heath-white differentiation is intact. There is mucosal thickening in the left maxillary sinus. The mastoid air cells are clear. No depressed calvarial fracture. The surrounding soft tissues are unremarkable. IMPRESSION: 1. No acute intracranial abnormality. SEPSIS Sepsis Screen Date sepsis recognized/suspect: May 22, 2025 Time Sepsis recognized/suspect: 1044 Recent Procedure: No On Antibiotic Therapy: No Respiratory Rate >20: No Heart Rate >90: No Temp<36 C (96.8 F) or >38.3 C: No SBP <90 or MAP <65 mmHG: No New Acute Mental Status Change: No Is the patient on CPAP, BIPAP,: No Physician Orders Heplock Iv (05/22/25 10:47) Head Without Contrast (05/22/25 10:47) Electrocardigram (05/22/25 12:00) Hydralazine Injection (Apresoline Inject (05/22/25 13:30) Allergies (05/22/25 13:30) Code Status (05/22/25 13:30) Sodium Chloride Lock (Saline Lock Ns) (05/22/25 14:00) Oxygen Per Hour (05/22/25 13:30) Ondansetron Hcl (Zofran) (05/22/25 13:30) Docusate Sodium Capsule (Colace Capsule) (05/22/25 13:30) Fall Risk Precautions In Place QSHIFT (05/22/25 13:30) Complete Blood Count (05/23/25 04:00) Comprehensive Metabolic Panel (05/23/25 04:00) Condition: Serious (05/22/25 13:30) Acetaminophen Tablet (Tylenol Tablet) (05/22/25 13:30) Maintain Bed Rest (05/22/25 13:30) Sequential Compression Device (05/22/25 ) Meclizine Tablet (Antivert Tablet) (05/22/25 13:45) Rivaroxaban Tablet (Xarelto Tablet) (05/22/25 18:00) * Neurology Consult (05/22/25 14:34) Vital Signs Date Time Temp Pulse Resp B/P (MAP) Pulse Ox O2 Delivery O2 Flow Rate FiO2 05/22/25 12:46 84 20 97 Room Air 05/22/25 12:46 98.5 84 20 151/81 (104) 97 98.5 05/22/25 12:32 69 05/22/25 10:52 69 05/22/25 10:02 97.5 88 17 176/85 (115 97 97.5 Laboratory Tests Test 05/22/25 11:01 White Blood Count 4.8 10^3/uL (4.4-10.8) Medications Medications Dose Ordered Sig/Telma Route Start Time Stop Time Status Last Admin Dose Admin Sodium Chloride 10 ml Q8HR IV 05/22/25 14:00 05/22/25 14:17 10 ML Sodium Chloride 500 ml @ 500 mls/hr Q1H ONCE IV 05/22/25 12:45 05/22/25 13:44 DC 05/22/25 12:45 500 MLS/HR Assessment/Plan Assessment/Plan Dizziness Dehydration Generalized weakness Plan 1. Admit to telemetry unit 2. Breathing treatment 3. Pain control management 4. Management of fluids and electrolytes 5. Consultation for hospitalist 6. Diagnostic tests head CT 7. DVT prophylaxis on SCDs 8. Repeat labs CBC, CMP in a.m. 9. Continue with current medical management 10. Treatment plan discussed with patient and RN. Patient verbalized understanding. Plan discussed with: Patient, Other (RN) My Orders Orders - TATI STAPLETON DNP Procedure Category Date Status Time Hydralazine Injection PHA 05/22/25 In Process (Apresoline Inject 13:30 Allergies CARLITO 05/22/25 In Process 13:30 Code Status CODE 05/22/25 Transmitted 13:30 Sodium Chloride Lock PHA 05/22/25 In Process (Saline Lock Ns) 14:00 Oxygen Per Hour RT 05/22/25 Transmitted 13:30 Ondansetron Hcl PHA 05/22/25 In Process (Zofran) 13:30 Docusate Sodium PHA 05/22/25 In Process Capsule (Colace 13:30 Fall Risk Precautions CARLITO 05/22/[address] 13:30 Complete Blood Count LAB 05/23/25 Verified 04:00 Comprehensive LAB 05/23/25 Verified Metabolic Panel 04:00 Condition: Serious CARLITO 05/22/25 In Process 13:30 Acetaminophen Tablet PHA 05/22/25 In Process (Tylenol Tablet) 13:30 Maintain Bed Rest CARLITO 05/22/25 In Process 13:30 Sequential CARLITO 05/22/25 In Process Compression Device Meclizine Tablet PHA 05/22/25 In Process (Antivert Tablet) 13:45 Rivaroxaban Tablet PHA 05/22/25 In Process (Xarelto Tablet) 18:00 Problem List: (1) Dizziness (2) Dehydration (3) Generalized weakness Date of Service: May 22, 2025 Billing Provider: TATI STAPLETON DNP Common Visit Codes: [id number] INP/OBS CARE (HIGH) TATI STAPLETON DNP May 22, 2025 15:47
[2025-05-22] MEDS ORDERED: NITROGLYCERIN 0.4 MG SL TAB SL PRN (16:00)
[2025-05-22] MEDS ORDERED: MORPHINE SULFATE INJ 2 MG/ml SYRG IV PRN (16:00)
[2025-05-22] MEDS: RIVAROXABAN 20 MG TAB PO SCH (18:00)
[2025-05-22 20:13] VITALS: BP 143/76; PULSE 93; RESP 18; TEMP 98.3; O2SAT 93
[2025-05-22 20:30] VITALS: BP 142/84; PULSE 94; RESP 16; TEMP 98.2; O2SAT 95
[2025-05-22 21:00] VITALS: BP 143/76; PULSE 93; RESP 18; TEMP 98.1; O2SAT 93
--- NOTE | 2025-05-22 21:00 | DVHINCON2 ---
Date of service: May 22, [address] [place] Reason for Consultation Dizziness, positive Romberg sign, right cerebellum encephalomalacia History of Present Illness Ms. Huitron is a 64 years old left-handed female with a history of hypertension, atrial fibrillation, fatty liver, rheumatoid arthritis, she came to the [facility] on 05/22/2025 with a chief complaint of dizziness. At this time, she is alert and fully oriented, she provided the following history 1-2 weeks ago, one day she woke up with constant dizziness/spinning sensation, unsteadiness, nausea, headache in bilateral frontal temporal head region. All her symptoms has been constant, and the headache was progressive, and has been 10/10 since 05/17/2025. She denies similar problems previously Urinalysis, 05/22/2025: Unremarkable CBC, 05/22/2025: Unremarkable BUN/CR, 05/22/2025: 13/1.07 GFR, 05/22/2025: 58 Sedated, 05/22/2025: No acute intracranial abnormality (Right cerebellar encephalomalacia) Past Medical History Hypertension, atrial fibrillation, fatty liver, rheumatoid arthritis. 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 Family History: Aortic valve disorder G8 FATHER Family history: Cardiovascular disease G8 FATHER Family history: Hypertension G8 FATHER Family History Hypertension, heart disease Social History She has no history of tobacco smoking, drug or alcohol abuse Allergies: Coded Allergies: Ceftriaxone (Verified Allergy, Unknown, 06/19/15) Codeine (Verified Allergy, Unknown, 06/19/15) Levofloxacin (Verified Allergy, Unknown, 06/19/15) Home Meds Reported Medications Golimumab (SIMPONI ARIA) 50 Mg/4 Ml Aimee, 50 MG IV Q2M, ML 10/04/23 Lansoprazole (Lansoprazole) 30 Mg Tab, 30 MG PO DAILY, TAB 10/04/23 Olmesartan Medoxomil (Olmesartan Medoxomil) 5 Mg Tab, 5 MG PO DAILY, TAB 10/04/23 Rivaroxaban (XARELTO) 20 Mg Tab, 20 MG PO DAILY, TAB 10/04/23 Fluticasone Propionate (FLOVENT HFA 110Mcg INH) 110 Mcg Ih, 50 MCG IN DAILY, INH 01/04/23 Magnesium Oxide (MAGNESIUM OXIDE) 400 Mg Tab, 400 MG OR DAILY, TAB 01/04/23 Linaclotide Base (Linzess) 72 Mcg Cap, 72 MCG PO, CAP 01/04/23 Chlorthalidone (Chlorthalidone) 25 Mg Tab, 25 MG PO DAILY, TAB 01/04/23 Leflunomide (Arava) 20 Mg Tab, 20 MG PO, TAB 02/16/22 Cyanocobalamin (B-12) 1,000 Mcg Cap, 1000 MCG PO, CAP 02/16/22 Potassium Chloride (POTASSIUM CHLORIDE CR) 10 Meq Tb, 10 MEQ PO, TAB 02/16/22 Current Medications Current Medications Medications (Trade) Dose Ordered Sig/Telma Route PRN Reason Start Time Stop Time Status Last Admin Rivaroxaban (Xarelto Tablet) 20 mg QPM PO 05/22/25 18:00 Hydralazine HCl (Apresoline Injection) 10 mg Q6HP PRN IV SBP>150 05/22/25 13:30 Sodium Chloride (Saline Lock Ns) 10 ml Q8HR IV 05/22/25 14:00 05/22/25 14:17 Ondansetron HCl (Zofran) 4 mg Q4HP PRN IV NAUSEA / VOMITING 05/22/25 13:30 Docusate Sodium (Colace Capsule) 100 mg BIDPRN PRN PO FOR CONSTIPATION 05/22/25 13:30 Acetaminophen (Tylenol Tablet) 650 mg Q6HP PRN PO PAIN SCALE 1-3 OR TEMP>100.4 05/22/25 13:30 Meclizine HCl (Antivert Tablet) 25 mg Q8HPRN PRN PO DIZZINESS 05/22/25 13:45 Nitroglycerin (Ntrostat Sublingual) 0.4 mg Q5MINP PRN SL FOR CHEST PAIN 05/22/25 16:00 Morphine Sulfate 2 mg Q30M PRN IV FOR CHEST PAIN 05/22/25 16:00 Review of Systems As above, the other systems are negative Vital Signs Vital Signs Date Time Temp Pulse Resp B/P (MAP) Pulse Ox O2 Delivery O2 Flow Rate FiO2 05/22/25 20:30 98.2 94 16 142/84 (103) 95 98.2 05/22/25 12:46 Room Air Physical Exam GENERAL EXAM: General: the patient is well developed and nourished. No acute distress. HEENT: Normocephalic, neck is supple, no carotid bruits. No mass. RESPIRATORY: Normal respiratory effort with symmetrical lung expansion. Lungs clear to auscultation. CARDIOVASCULAR: Regular rate and rhythm with no murmurs. S1, S2. ABDOMEN: Soft, nontender, normal bowel sound MUSCULOSKELETAL EXAM: Status post right metatarsal amputation NEUROLOGICAL: MENTAL STATUS: Awake and alert. Oriented to person, place, time and general cir cumstances. Able to give personal history. SPEECH, LANGUAGE, HIGHER CORTICAL FUNCTION: no aphasia or dysathria. CRANIAL NERVES: #2: Intact visual pretty to confrontation. The optic discs were sharp. #3,4,6: Pupils are equal, round and reactive. EOMs full and conjugate. Questionable horizontal nystagmus triggered by gazing to either left or right side #5: Facial sensation intact in all three divisions bilaterally. Mandibular strength intact. #7: Facial muscles symmetrical and strength intact. #8: Hearing grossly normal to voice. #9,10: Uvula and soft palate rise in the midline. Swallow and voice are normal. #11: Trapezius and sternomastoid strength intact bilaterally. #12: Tongue midline. No fasciculations or atrophy. SENSATION: Sensation to touch and pinprick is normal. MOTOR: Normal tone in the upper and lower extremity. Normal muscle bulk. No fasciculations. No abnormal movements or posturing. Muscle strength of the major groups in the upper extremities is 5/5. Muscle strength of the major groups in the lower extremities is 5/5. REFLEXES: Deep tendon reflexes normal and symmetrical. No pathological reflexes. CEREBELLAR/COORDINATION: Finger-nose showed mild right intentional tremor GAIT/STATION: deferred. Labs/Diagnostic Data Labs Test 05/22/25 12:55 05/22/25 11:59 05/22/25 11:01 05/22/25 10:41 Range/Units Urine Color Colorless Yellow Urine Clarity Clear Clear Urine pH 7.0 5.0-9.0 Urine Specific [place] 1.005 1.001-1.035 Urine Protein Negative Negative Urine Ketones Negative Negative Urine Blood Negative Negative /uL Urine Nitrite Negative Negative Urine Bilirubin Negative Negative Urine Urobilinogen Normal Negative mg/dL Urine Leukocyte Esterase Negative Negative /uL Urine RBC 1 0 - 4 /hpf Urine Microscopic WBC < 1 0-5 /HPF Urine Squamous Epithelial Cells None seen <5 /hpf Urine Bacteria None seen None Seen /hpf Urine Glucose Normal Normal mg/dL Troponin I High Sensitivity < 3 L </=34 ng/L White Blood Count 4.8 4.4-10.8 10^3/uL Red Blood Count 5.01 4.0-5.20 10^6/uL Hemoglobin 15.3 12.2-16.2 g/dL Hematocrit 44.2 36.0-46.0 % Mean Corpuscular Volume 88.2 80.0-100.0 fL Mean Corpuscular Hemoglobin 30.5 28.0-32.0 pg Mean Corpuscular Hemoglobin Concent 34.6 32.0-36.0 g/dL Red Cell Distribution Width 13.7 11.8-14.3 % Platelet Count 225 140-450 10^3/uL Mean Platelet Volume 8.1 6.9-10.8 fL Neutrophils (%) (Auto) 76.5 37.0-80.0 % Lymphocytes (%) (Auto) 19.5 10.0-50.0 % Monocytes (%) (Auto) 2.6 0.0-12.0 % Eosinophils (%) (Auto) 0.8 0.0-7.0 % Basophils (%) (Auto) 0.6 0.0-2.0 % Neutrophils # (Auto) 3.6 1.6-8.6 10 ^3/uL Lymphocytes # (Auto) 0.9 0.4-5.4 10 ^3/uL Monocytes # (Auto) 0.1 0-1.3 10 ^3/uL Eosinophils # (Auto) 0 0-0.8 10 ^3/uL Basophils # (Auto) 0 0-0.2 10 ^3/uL Nucleated Red Blood Cells 0.1 % Sodium Level 141 136-145 mmol/L Potassium Level 4.2 3.5-5.1 mmol/L Chloride Level 106 98-107 mmol/L Carbon Dioxide Level 29 20-31 mmol/L Anion Gap 6 5-15 Blood Urea Nitrogen 13 9-23 mg/dL Creatinine 1.07 H 0.550-1.02 mg/dL Glomerular Filtration Rate Calc 58 >90 mL/min BUN/Creatinine Ratio 12.1 10.0-20.0 Serum Glucose 113 H 74-106 mg/dL Calcium Level 9.6 8.7-10.4 mg/dL POC Glucose 92 70-106 mg/dl Assessment Acute vertigo Acute gait disturbance Acute persistent headache Acute stroke, likely right cerebellar stroke Atrial fibrillation Plan/Recommendation Monitoring Supportive treatment Telemetry UDS CMP Lipitor profile Carotid Doppler Echocardiogram MRI brain VANNESSA Xarelto 20 mg daily Lipitor 20 mg daily Tylenol 650 mg q.6 hours p.r.n. for headache Up to chair Physical therapy More recommendation per clinical course Progress: Poor This medical document was created using an electronic medical record system with [employer] dictation system. Although this document has been carefully reviewed, there may still be some phonetic and typographical errors. These areas are purely typographical due to imperfections of the software programs, and do not reflect any compromise in the patient's medical care. Plan discussed with: Patient, Other DAIJA RAHMAN MD May 22, 2025 21:00
[2025-05-22] MEDS ORDERED: ATORVASTATIN 20 MG TAB PO ONE (21:45)
[2025-05-22] MEDS: ATORVASTATIN 20 MG TAB PO SCH (22:47)
[2025-05-22] MEDS: ACETAMINOPHEN 325 MG TAB PO PRN (23:07)
--- NOTE | 2025-05-22 23:22 | DVH ---
ULTRASOUND CAROTID DUPLEX BILATERAL REASON FOR EXAM: cva. Headaches. Dizziness. COMPARISON: None TECHNIQUE: Using real-time freeze-frame technique with the 6 MHz small parts transducer, multiple lo ngitudinal and transverse sections were obtained. Simultaneous color flow Doppler imaging was perfor med. FINDINGS: There is mild calcified plaque in the proximal right internal carotid artery. There is oth erwise minimal plaque in bilateral common and internal carotid arteries. Waveforms are normal. Flow is laminar throughout. Peak systolic velocities as well as ICA/CCA ratios are normal. Flow through t he vertebral and external carotid arteries is antegrade bilaterally. PEAK SYSTOLIC VELOCITIES (cm/sec): RIGHT: CCA 88 Proximal ICA 72 Mid ICA 78 Distal ICA 71 ECA 117 ICA/CCA ratio 0.9 LEFT: CCA 99 Proximal ICA 67 Mid ICA 73 Distal ICA 82 ECA 93 ICA/CCA ratio 0.8 IMPRESSION: Mild vascular disease with no hemodynamically significant stenosis. Any narrowing is less than 50%. Measurement of carotid stenosis is based on velocity parameters that correlate the residual internal carotid diameter with that of the more distal vessel in accordance with the [place] Symptomati c Carotid Endarterectomy Trial (NASCET).
[2025-05-22 23:23] LABS: Alanine Aminotransferase 23 U/L (7-40); Alkaline Phosphatase 49 U/L (46-116); Calcium 9.3 mg/dL (8.7-10.4); Carbon Dioxide 25 mmol/L (20-31)
[2025-05-22 23:24] LABS: Albumin 4.6 g/dL (3.2-4.8); Anion Gap 8 (5-15); BUN/Creatinine Ratio 14.9 (10.0-20.0); Bilirubin, Total 0.5 mg/dL (0.2-1.0); Blood Urea Nitrogen 15 mg/dL (9-23); Chloride 108 mmol/L (98-107); Glucose 112 mg/dL (74-106); Potassium 3.8 mmol/L (3.5-5.1); Sodium 141 mmol/L (136-145); Total Protein 6.8 g/dL (5.7-8.2)
[2025-05-23] VITALS (7 sets, daily range): BP systolic 96–129; BP diastolic 56–74; PULSE 57–82; RESP 18; TEMP 97.7–98.5; O2SAT 95–98
[2025-05-23 00:13] LABS: Amphetamine Screen, Urine Neg (NEGATIVE); Barbiturate Scree,Urine Neg (NEGATIVE); Benzodiazephine Screen, Urine Neg (NEGATIVE); Cannabinoid Screen, Urine Neg (NEGATIVE); Cocaine Screen, Urine Neg (NEGATIVE); Opiate Scree,Urine Neg (NEGATIVE); Phencyclidine Screen, Urine Neg (NEGATIVE)
[2025-05-23 06:32] LABS: Hematocrit 39.7 % (36.0-46.0); Hemoglobin 13.8 g/dL (12.2-16.2); Mean Corpuscular Hemoglobin 30.5 pg (28.0-32.0); Mean Corpuscular Volume 88.0 fL (80.0-100.0); Nucleated Red Blood Cells % 0.1 %
--- NOTE | 2025-05-23 06:35 | ECG ---
[facility] Test Date: 2025-05-22 Test Time: 10:51:22 Pat Name: CHAUNCEY KOENIG Department: ER Room: 0215T A Gender: F Well Driller: CUATE : 1960 Requested By: RAZ CROUCHJJ Order Number: [id number] Reading MD: Aakash Rae Measurements Intervals [place] Rate: 68 P: 26 NV: 149 QRS: 0 QRSD: 152 T: 2 QT: 434 QTc: 462 Interpretive Statements Sinus rhythm Right bundle branch block Inferior infarct, old Electronically Signed On 05-29-2025 15:30:52 PDT by Aakash Rae Please click the below link to view image of tracing.
[2025-05-23 06:39] LABS: Alanine Aminotransferase 19 U/L (7-40); Anion Gap 8 (5-15); BUN/Creatinine Ratio 14.1 (10.0-20.0); Blood Urea Nitrogen 13 mg/dL (9-23); Calcium 9.6 mg/dL (8.7-10.4); Carbon Dioxide 24 mmol/L (20-31); Potassium 3.7 mmol/L (3.5-5.1); Sodium 142 mmol/L (136-145); Total Protein 6.0 g/dL (5.7-8.2)
[2025-05-23 06:40] LABS: Albumin 4.0 g/dL (3.2-4.8); Bilirubin, Total 0.5 mg/dL (0.2-1.0)
[2025-05-23 06:44] LABS: Alkaline Phosphatase 42 U/L (46-116); Chloride 110 mmol/L (98-107)
[2025-05-23 07:05] LABS: Glucose 99 mg/dL (74-106)
[2025-05-23] MEDS: LORazepam 2MG/ML-1ML VIAL IV ONE (08:37)
--- NOTE | 2025-05-23 09:46 | DVH ---
EXAMINATION: MRI BRAIN HEAD WO CONTRAST INDICATION: CVA COMPARISON: CT scan of the head performed on 05/22/2025 TECHNIQUE: Multiplanar, multisequence magnetic resonance imaging of the brain was performed without the use of i ntravenous contrast. FINDINGS: No evidence of acute infarct. No intracranial hemorrhage. No mass effect. There is encephalomalacia in the right cerebellum. There is periventricular/deep white matter T2/FLAIR hyperintensity is nonspecific, but most commonly associated with chronic microvascular disease. The ventricles and sulci are normal in size for age. Clear basal cisterns. Flow voids in the major intracranial vessels are maintained. No abnormality of the orbits. The mastoid air cells are clear. There is mucosal thickening in the left maxillary sinus. No abnormality of the visualized osseous structures and extracranial soft tissues. IMPRESSION: 1. No acute infarct, intracranial hemorrhage, mass effect, or hydrocephalus.
--- NOTE | 2025-05-23 10:44 | DVHPN2 ---
Subjective Patient continues to report having generalized weakness, posterior lobe headache Reviewed: Care Plan, H&P, Labs, Medications Changes from previous H/P or p: No Changes General: Per HPI Eyes: No Pain, No Vision change, No Conjunctivae inflammation, No Eyelid inflammation, No Other, No Redness ENT: No Ear pain, No Ear discharge, No Nose pain, No Nose discharge, No Nose congestion, No Mouth pain, No Mouth swelling, No Throat pain, No Throat swelling, No Other Cardiovascular: No Chest Pain, No Palpitations, No Orthopnea, No Paroxysmal Noc. Dyspnea, No Edema, No Lt Headedness; Other (Dizzy spell, dyspnea on exertion.) Respiratory: No Cough, No Dry, No Shortness of breath, No SOB with excertion, No Wheezing, No Hemoptysis, No Pleuritic Pain, No Sputum, No Other Gastrointestinal: Nausea; No Vomiting; Abdominal Pain, Diarrhea; No Constipation, No Melena, No Hematochezia, No Other Genitourinary: No Dysuria, No Frequency, No Incontinence, No Hematuria, No Retention, No Other Musculoskeletal: No other, No neck pain, No shoulder pain, No arm pain, No back pain, No hand pain, No leg pain, No foot pain Skin: No Rash, No Lesions, No Jaundice, No Bruising, No Other Objective Vitals Vital Signs Date Time Temp Pulse Resp B/P (MAP) Pulse Ox O2 Delivery O2 Flow Rate FiO2 05/23/25 09:00 98.5 57 18 102/62 (75) 95 98.5 05/22/25 21:00 Room Air* 0 21 Intake/Output Intake and Output 05/23/25 07:00 Intake Total 600 ml Balance 600 ml Intake Oral 600 ml # Voids 2 General Appearance: Alert, Oriented X3, Cooperative, mild distress HEENT: Atraumatic, PERRLA Lungs: Clear to auscultation, Normal air movement Cardiovascular: Normal S1, Normal S2, Other (Paroxysmal atrial fibrillation. Right bundle branch block) Abdomen: Normal bowel sounds, Soft, No tenderness Back: Flank Tenderness, Midline Tenderness Musculoskeletal: Normal sensory function, Normal motor function Neuro: Normal speech Skin: Dry, Intact Psych/Mental Status: Mental status NL, Mood NL Medications Current Medications Medications Dose Ordered Sig/Telma Route Start Time Stop Time Status Last Admin Dose Admin Rivaroxaban 20 mg QPM PO 05/22/25 18:00 Hydralazine HCl 10 mg Q6HP PRN IV 05/22/25 13:30 Sodium Chloride 10 ml Q8HR IV 05/22/25 14:00 05/23/25 05:24 10 ML Ondansetron HCl 4 mg Q4HP PRN IV 05/22/25 13:30 Docusate Sodium 100 mg BIDPRN PRN PO 05/22/25 13:30 Acetaminophen 650 mg Q6HP PRN PO 05/22/25 13:30 Meclizine HCl 25 mg Q8HPRN PRN PO 05/22/25 13:45 Nitroglycerin 0.4 mg Q5MINP PRN SL 05/22/25 16:00 Morphine Sulfate 2 mg Q30M PRN IV 05/22/25 16:00 Acetaminophen 650 mg Q4HP PRN PO 05/22/25 21:45 05/22/25 23:07 650 MG Atorvastatin Calcium 20 mg HS PO 05/22/25 22:00 05/22/25 22:47 20 MG Laboratory Results Laboratory Tests 05/23/25 05:39 Chemistry Test 05/22/25 11:01 05/22/25 22:00 05/23/25 05:39 Calcium Level 9.6 mg/dL (8.7-10.4) 9.3 mg/dL (8.7-10.4) 9.6 mg/dL (8.7-10.4) Albumin 4.6 g/dL (3.2-4.8) 4.0 g/dL (3.2-4.8) Total Protein 6.8 g/dL (5.7-8.2) 6.0 g/dL (5.7-8.2) LFT Test 05/22/25 22:00 05/23/25 05:39 Alanine Aminotransferase (ALT) 23 U/L (7-40) 19 U/L (7-40) Alkaline Phosphatase 49 U/L (46-116) 42 U/L (46-116) L Aspartate Amino Transferase (AST) 22 U/L (13-40) 21 U/L (13-40) Total Bilirubin 0.5 mg/dL (0.2-1.0) 0.5 mg/dL (0.2-1.0) Urinalysis Test 05/22/25 12:55 Urine Color Colorless (Yellow) Urine Clarity Clear (Clear) Urine pH 7.0 (5.0-9.0) Urine Specific [place] 1.005 (1.001-1.035) Urine Protein Negative (Negative) Urine Ketones Negative (Negative) Urine Blood Negative /uL (Negative) Urine Nitrite Negative (Negative) Urine Bilirubin Negative (Negative) Urine Urobilinogen Normal mg/dL (Negative) Urine Leukocyte Esterase Negative /uL (Negative) Urine RBC 1 /hpf (0 - 4) Urine Microscopic WBC < 1 /HPF (0-5) Urine Squamous Epithelial Cells None seen /hpf (<5) Urine Bacteria None seen /hpf (None Seen) Urine Glucose Normal mg/dL (Normal) Labs and/or images reviewed: Labs reviewed by me, Image(s) reviewed by me Assessment/Plan Assessment/Plan Impression: -rule out CVA -rule out acute diastolic heart failure -paroxysmal atrial fibrillation -primary hypertension -dyslipidemia -obesity -intractable headache Plan: -neurology consultation: Recommendations reviewed. MRI negative for any acute pathology -carotid Doppler study: Negative for any flow-limiting stenosis -echocardiogram pending -continue antihypertensives -pain management, start Ultram for headache Total time spent with patient discussing and formulating plan of care: 35 minutes. This medical document was created using an electronic medical record system with [employer] dictation system. Although this document has been carefully reviewed, there may still be some phonetic and typographical errors. These areas are purely typographical due to imperfections of the software programs, and do not reflect any compromise in the patient's medical care. Plan discussed with: Patient, Other (RN) My Orders Orders - CELESTE MOORE NP Procedure Category Date Status Time Pt Request For Service PT 05/23/25 Logged 10:23 Date of Service: May 23, 2025 Billing Provider: CELESTE MOORE NP Common Visit Codes: [id number] INP/OBS CARE(HIGH) CELESTE MOORE NP May 23, 2025 10:44
--- NOTE | 2025-05-23 10:58 | DVHPN2 ---
Progress Note - Dictate Date Seen: May 23, 2025 Medical Necessity Reason Pt with a Central, PICC or Fol: No Subjective Ms. Huitron is a 64 years old left-handed female with a history of hypertension, atrial fibrillation, fatty liver, rheumatoid arthritis, she came to the [facility] on 05/22/2025 with a chief complaint of dizziness. I have seen examined the patient, I have talked to MRI center, and her nurse, she reports no change in her dizziness/vertigo UDS, 05/22/2025: Negative Urinalysis, 05/22/2025: Unremarkable CBC, 05/22/2025: Unremarkable BUN/CR, 05/22/2025: 13/1.07 GFR, 05/22/2025: 58 Carotid Doppler, 05/22/2025: Mild vascular disease with no hemodynamically significant stenosis. Any narrowing is less than 50% CT head, 05/22/2025: No acute intracranial abnormality (Right cerebellar encephalomalacia) MRI head, 05/23/2025: No acute infarct, intracranial hemorrhage, mass effect, or hydrocephalus. vital signs Vital Sign Date Time Temp Pulse Resp B/P (MAP) Pulse Ox O2 Delivery O2 Flow Rate FiO2 05/23/25 09:00 98.5 57 18 102/62 (75) 95 98.5 05/22/25 21:00 Room Air* 0 21 Total Intake and Output 05/22/25 05/22/25 05/23/25 15:00 23:00 07:00 Intake Total 600 ml Balance 600 ml medications Current Medications Medications Dose Ordered Sig/Telma Route Start Time Stop Time Status Last Admin Dose Admin Rivaroxaban 20 mg QPM PO 05/22/25 18:00 Hydralazine HCl 10 mg Q6HP PRN IV 05/22/25 13:30 Sodium Chloride 10 ml Q8HR IV 05/22/25 14:00 05/23/25 05:24 10 ML Ondansetron HCl 4 mg Q4HP PRN IV 05/22/25 13:30 Docusate Sodium 100 mg BIDPRN PRN PO 05/22/25 13:30 Acetaminophen 650 mg Q6HP PRN PO 05/22/25 13:30 Meclizine HCl 25 mg Q8HPRN PRN PO 05/22/25 13:45 Nitroglycerin 0.4 mg Q5MINP PRN SL 05/22/25 16:00 Morphine Sulfate 2 mg Q30M PRN IV 05/22/25 16:00 Acetaminophen 650 mg Q4HP PRN PO 05/22/25 21:45 05/22/25 23:07 650 MG Atorvastatin Calcium 20 mg HS PO 05/22/25 22:00 05/22/25 22:47 20 MG Tramadol HCl 50 mg Q6HP PRN PO 05/23/25 10:45 UNV objective General: the patient is well developed and nourished. No acute distress. MUSCULOSKELETAL EXAM: Status post right metatarsal amputation MENTAL STATUS: Awake and alert. Oriented to person, place, time and general circumstances. Able to give personal history. SPEECH, LANGUAGE, HIGHER CORTICAL FUNCTION: no aphasia or dysathria. CRANIAL NERVES: Pupils are equal, round and reactive. EOMs full and conjugate. Questionable horizontal nystagmus triggered by gazing to either left or right side. Facial sensation intact in all three divisions bilaterally. Mandibular strength intact. Facial muscles symmetrical and strength intact. SENSATION: Sensation to touch and pinprick is normal. MOTOR: Normal tone in the upper and lower extremity. Normal muscle bulk. No fasciculations. No abnormal movements or posturing. Muscle strength of the major groups in the extremities is 5/5. REFLEXES: Deep tendon reflexes normal and symmetrical. No pathological reflexes. CEREBELLAR/COORDINATION: Finger-nose showed mild right intentional tremor GAIT/STATION: deferred. laboratory and microbiology Laboratory Tests 05/23/25 05:39 Test 05/23/25 05:39 Range/Units Serum Glucose 99 74-106 mg/dL Problem List Acute vertigo Acute gait disturbance Acute persistent headache Acute stroke, likely right cerebellar stroke Atrial fibrillation Assessment/Plan Monitoring Supportive treatment Telemetry Lipitor profile HbA1c Echocardiogram, reports pending Xarelto 20 mg daily Lipitor 20 mg daily Tylenol 650 mg q.6 hours p.r.n. for headache Up to chair Physical therapy More recommendation per clinical course This medical document was created using an electronic medical record system with [employer] system. Although this document has been carefully reviewed, there may still be some phonetic and typographical errors. These areas are purely typographical due to imperfections of the software programs, and do not reflect any compromise in the patient's medical care Prognosis poor Plan discussed with: Patient, Other Total Time (mins): 35 DAIJA RAHMAN MD May 23, 2025 10:58
[2025-05-23 11:16] LABS: Triglycerides 101 mg/dL (< 150)
[2025-05-23 11:18] LABS: Cholesterol 175 mg/dL (< 200); HDL Cholesterol 45 mg/dL (40-59)
[2025-05-23] MEDS: DOCUSATE SOD 100 MG CAP PO PRN (18:09)
--- NOTE | 2025-05-23 18:33 | DVHSR ---
APPROVED REPORT EXAM: Two-dimensional and M-mode echocardiogram with Doppler and color Doppler. Blood Pressure: 96/56 mmHg INDICATION Atrial Fibrillation CVA RISK FACTORS Height: 66, Weight: 246 DIMENSIONS LVDd3.9 (3.8-5.7cm)LA (2D)3.8 (1.9-4.0cm)Aortic Root3.0 (2.0-3.7cm) LVDs2.7 (2.5-4.0cm)LA (MM) (1.9-4.0cm)Aortic Cusp Exc1.5 (1.5-2.0cm) EF (%) 61.0 (55-70%)Rt. Atrium5.3 (1.9-4.0cm)Asc. Aorta cm IVSd1.2 (0.7-1.1cm)RV (D) (1.8-2.4cm) PWd1.3 (0.7-1.1cm) Mitral Valve MitralMitral Stenosis E wave0.94m/sMV Mean GR.mmHg A wave0.90m/sMV Peak GR.mmHg E/A ratio1.02D MVAcm2 DECEL [id number] 1/2 [id number] IVRTmsDop MVA4.30cm2 Aortic Valve Aortic ValveAortic Stenosis V11.22m/Evita Mean GR.4mmHg V21.54m/Evita Peak GR.9mmHg LVOT Diameter1.9 (1.8-2.4cm)Doppler AVA2.24cm2 Pulmonic Valve V20.98m/s Tricuspid Valve TR Velocity2.46m/s [id number] Other Information Quality : Technically LimitedRhythm : Conclusion LVEF normal at 60-65%, Mild diastolic dysfunction Right ventricle is moderately dilated with normal function Right atrium moderately dilated
[2025-05-24] VITALS (8 sets, daily range): BP systolic 117–135; BP diastolic 69–88; PULSE 58–86; RESP 16–17; TEMP 97.2–98; O2SAT 94–96
[2025-05-24] MEDS ORDERED: ATOR20TA50 PO (12:16)
--- NOTE | 2025-05-24 12:22 | DVHDS2 ---
Discharge Summary Date of Admission May 22, 2025 at 15:46 Date of Discharge: May 24, 2025 Admitting Diagnosis Dizziness Labs/Diagnostic Data: Laboratory Results Test 05/23/25 05:39 05/22/25 12:55 05/22/25 11:59 05/22/25 10:41 White Blood Count 7.4 10^3/uL (4.4-10.8) Red Blood Count 4.51 10^6/uL (4.0-5.20) Hemoglobin 13.8 g/dL (12.2-16.2) Hematocrit 39.7 % (36.0-46.0) Mean Corpuscular Volume 88.0 fL (80.0-100.0) Mean Corpuscular Hemoglobin 30.5 pg (28.0-32.0) Mean Corpuscular Hemoglobin Concent 34.7 g/dL (32.0-36.0) Red Cell Distribution Width 13.8 % (11.8-14.3) Platelet Count 202 10^3/uL (140-450) Mean Platelet Volume 8.4 fL (6.9-10.8) Neutrophils (%) (Auto) 60.3 % (37.0-80.0) Lymphocytes (%) (Auto) 30.6 % (10.0-50.0) Monocytes (%) (Auto) 7.7 % (0.0-12.0) Eosinophils (%) (Auto) 0.9 % (0.0-7.0) Basophils (%) (Auto) 0.5 % (0.0-2.0) Neutrophils # (Auto) 4.5 10 ^3/uL (1.6-8.6) Lymphocytes # (Auto) 2.3 10 ^3/uL (0.4-5.4) Monocytes # (Auto) 0.6 10 ^3/uL (0-1.3) Eosinophils # (Auto) 0.1 10 ^3/uL (0-0.8) Basophils # (Auto) 0 10 ^3/uL (0-0.2) Nucleated Red Blood Cells 0.1 % Sodium Level 142 mmol/L (136-145) Potassium Level 3.7 mmol/L (3.5-5.1) Chloride Level 110 mmol/L (98-107) Carbon Dioxide Level 24 mmol/L (20-31) Anion Gap 8 (5-15) Blood Urea Nitrogen 13 mg/dL (9-23) Creatinine 0.92 mg/dL (0.550-1.02) Glomerular Filtration Rate Calc 70 mL/min (>90) BUN/Creatinine Ratio 14.1 (10.0-20.0) Serum Glucose 99 mg/dL (74-106) Hemoglobin A1c 5.5 % A1C (<5.7) Calcium Level 9.6 mg/dL (8.7-10.4) Total Bilirubin 0.5 mg/dL (0.2-1.0) Aspartate Amino Transferase (AST) 21 U/L (13-40) Alanine Aminotransferase (ALT) 19 U/L (7-40) Alkaline Phosphatase 42 U/L (46-116) Total Protein 6.0 g/dL (5.7-8.2) Albumin 4.0 g/dL (3.2-4.8) Triglycerides Level 101 mg/dL (< 150) Cholesterol Level 175 mg/dL (< 200) LDL Cholesterol 120 mg/dL (< 100) HDL Cholesterol 45 mg/dL (40-59) Urine Color Colorless (Yellow) Urine Clarity Clear (Clear) Urine pH 7.0 (5.0-9.0) Urine Specific [place] 1.005 (1.001-1.035) Urine Protein Negative (Negative) Urine Ketones Negative (Negative) Urine Blood Negative /uL (Negative) Urine Nitrite Negative (Negative) Urine Bilirubin Negative (Negative) Urine Urobilinogen Normal mg/dL (Negative) Urine Leukocyte Esterase Negative /uL (Negative) Urine RBC 1 /hpf (0 - 4) Urine Microscopic WBC < 1 /HPF (0-5) Urine Squamous Epithelial Cells None seen /hpf (<5) Urine Bacteria None seen /hpf (None Seen) Urine Glucose Normal mg/dL (Normal) Urine Opiates Screen Neg (NEGATIVE) Urine Fentanyl Screen Neg (NEGATIVE) Urine Barbiturates Screen Neg (NEGATIVE) Urine Phencyclidine Screen Neg (NEGATIVE) Urine Amphetamines Screen Neg (NEGATIVE) Urine Benzodiazepines Screen Neg (NEGATIVE) Urine Cocaine Screen Neg (NEGATIVE) Urine Cannabinoids Screen Neg (NEGATIVE) Troponin I High Sensitivity < 3 ng/L (</=34) POC Glucose 92 mg/dl (70-106) Other Laboratory Tests 05/23/25 05:39 Brief Hx & Hospital Course: History of Present Illness The patient is a 64-year-old female with past medical history of AFib, arthritis, fatty liver, and hypertension who presented to [facility] with complaint of dizziness for the past 1 week. Patient reports she has been experiencing hydration, dizzy spells, dyspnea on exertion, headache, fatigue, abdominal pain, nausea, diarrhea, generalized weakness, getting worse that prompted this visit. Patient was seen and evaluated in the ED, laboratory data shows WBC 4.8, platelets 225, sodium 141, potassium 4.2, BUN 13, creatinine 1.07, glucose 113, calcium 9.6, troponin 3, blood pressure 150/62, heart rate 84, temperature 98.8 F, O2 saturation 97% room air. Head CT showed no acute intracranial abnormality. Please see medication orders section in the computer. On my assessment, patient denied chest pain, no headache, no dizziness at this moment, no diaphoresis, no shortness of breath, no nausea, no vomiting, no fever, no chills. Patient was admitted for further evaluation and medical management. Course of hospitalization: Patient had MRI of the brain. Neurology consultation was placed. Discussion was made with Dr. Hughes regarding MRI of the brain as well as radiology interpretation. Dr. 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 Patient has been ambulating with physical therapy, although unsteady. Patient continues to have intermittent headache to the right side of her head as well as occipital area. Carotid Doppler study was found to have no flow-limiting stenosis. Echocardiogram was performed without any noted thrombus, PFO. Patient was offered placement in a [facility] facility regarding her home situation, given her has been is of questionable health himself. At this time she states that her son will come in his sister at home. Patient will be discharged home with home health services including physical therapy and medication assistance. Patient will be continued on Xarelto for her history of AFib as well as noted acute CVA by Neurology. Patient will also be placed on Lipitor 20 mg q.h.s.. Patient was agreeable with discharge plan. All questions answered. Physical examination General: Alert and Oriented x3. No acute distress. Well-nourished. Obese Eyes: EOMI. Anicteric. HENT: Moist mucous membranes. Lungs: Clear to auscultation bilaterally. No accessory muscle use. Cardiovascular: Regular rate and rhythm. No murmur. No JVD. Abdomen: Soft, non-tender and non-distended. No palpable masses. Extremities: No edema. Non-tender. Skin: No rashes or lesions. Warm. Neurologic: No focal neurological deficits. CN II-XII grossly intact, but not individually tested. Psychiatric: Cooperative. Appropriate mood and affect. Total time spent with patient discussing and formulating plan of care: 35 minutes. This medical document was created using an electronic medical record system with [employer] dictation system. Although this document has been carefully reviewed, there may still be some phonetic and typographical errors. These areas are purely typographical due to imperfections of the software programs, and do not reflect any compromise in the patient's medical care. Consults/Reason for consult Neurology: Rule out acute CVA Condition at Discharge: Fair Final Diagnosis/Problems List Acute CVA Secondary diagnosis: -acute diastolic heart failure -paroxysmal atrial fibrillation -primary hypertension -dyslipidemia -obesity -intractable headache Discharge Disposition: Home with Health Services Discharge Instruct/Medications Diet: Consistent carbohydrate, Cardiac 2g Na,low cholest Activity: No Restrictions, As Tolerated Follow Up/Referral: Follow up with Dr. Hughes in 2-3 weeks Follow up with PCP in 1-2 weeks Medications: Continue all home medications. Patient will be continued on Xarelto for anticoagulation of previous disease process as well as acute CVA Atorvastatin 20 mg q.h.s. Scheduled Atorvastatin Calcium (Atorvastatin Calcium), 20 MG PO HS Chlorthalidone (Chlorthalidone), 25 MG PO DAILY, (Reported) Fluticasone Propionate (FLOVENT HFA 110Mcg INH), 50 MCG IN DAILY, (Reported) Golimumab (Simponi Aria), 50 MG IV Q2M, (Reported) Lansoprazole (Lansoprazole), 30 MG PO DAILY, (Reported) Magnesium Oxide (Magnesium Oxide), 400 MG OR DAILY, (Reported) Olmesartan Medoxomil (Olmesartan Medoxomil), 5 MG PO DAILY, (Reported) Rivaroxaban (Xarelto), 20 MG PO DAILY, (Reported) Miscellaneous Medications Cyanocobalamin (B-12), 1,000 MCG PO, (Reported) Leflunomide (Arava), 20 MG PO, (Reported) Linaclotide Base (Linzess), 72 MCG PO, (Reported) Potassium Chloride (Potassium Chloride Cr), 10 MEQ PO, (Reported) 36 Discharge Statement: "Patient was advised to return to the ER or call 911 if any headaches, dizziness, shortness of breath, chest pain, abdominal pain, bleeding, fevers, or worsening of medical condition. Patient was counseled about treatment plan, medications, possible side effects, patientverbalized understanding. All questions were answered to the best of my ability. This discharge took greater then 30 minutes in planning, reviewing documentation, counseling the patient, and discussing with other team members." ASSESSMENT ASSESSMENT Assessment Acute CVA Date of Service: May 24, 2025 Billing Provider: CELESTE MOORE NP Common Visit Codes: 51759-ONG/OBS DISCH DAY >30min CELESTE MOORE NP May 24, 2025 12:22
[2025-05-24] MEDS ORDERED: TRAM-626 PO (16:23)
--- NOTE | 2025-05-24 21:44 | DVHPN2 ---
Progress Note - Dictate Date Seen: May 24, 2025 Medical Necessity Reason Pt with a Central, PICC or Fol: No Subjective Ms. Huitron is a 64 years old left-handed female with a history of hypertension, atrial fibrillation, fatty liver, rheumatoid arthritis, she came to the [facility] on 05/22/2025 with a chief complaint of dizziness. I have seen examined the patient, I have discussed with her nurse, she reports no change in her dizziness/vertigo, per my observation, internal tremor in the right hand is better The case was discussed with Jose earlier today She hopes that she can follow with me afrer discharge UDS, 05/22/2025: Negative Urinalysis, 05/22/2025: Unremarkable CBC, 05/22/2025: Unremarkable BUN/CR, 05/22/2025: 13/1.07 GFR, 05/22/2025: 58 HGB A1c, 05/23/25: 5.5 TG/HDL/LDL/HDL, 05/23/2025: 101/175/120/45 TTE 05/23/2025: LVEF normal at 60-65%, Mild diastolic dysfunction Right ventricle is moderately dilated with normal function Right atrium moderately dilated Carotid Doppler, 05/22/2025: Mild vascular disease with no hemodynamically significant stenosis. Any narrowing is less than 50% CT head, 05/22/2025: No acute intracranial abnormality (Right cerebellar encephalomalacia) MRI head, 05/23/2025: No acute infarct, intracranial hemorrhage, mass effect, or hydrocephalus. vital signs Vital Sign Date Time Temp Pulse Resp B/P (MAP) Pulse Ox O2 Delivery O2 Flow Rate FiO2 05/24/25 16:39 98.0 74 17 124/69 (87) 95 98.0 05/24/25 08:00 Room Air* 0 21 Total Intake and Output 05/23/25 05/23/25 05/24/25 15:00 23:00 07:00 Intake Total 720 ml 1180 ml 920 ml Balance 720 ml 1180 ml 920 ml medications Current Medications Medications Dose Ordered Sig/Telma Route Start Time Stop Time Status Last Admin Dose Admin Rivaroxaban 20 mg QPM PO 05/22/25 18:00 05/24/25 17:32 20 MG Hydralazine HCl 10 mg Q6HP PRN IV 05/22/25 13:30 Sodium Chloride 10 ml Q8HR IV 05/22/25 14:00 05/24/25 14:00 10 ML Ondansetron HCl 4 mg Q4HP PRN IV 05/22/25 13:30 Docusate Sodium 100 mg BIDPRN PRN PO 05/22/25 13:30 05/24/25 17:33 100 MG Acetaminophen 650 mg Q6HP PRN PO 05/22/25 13:30 Meclizine HCl 25 mg Q8HPRN PRN PO 05/22/25 13:45 Nitroglycerin 0.4 mg Q5MINP PRN SL 05/22/25 16:00 Morphine Sulfate 2 mg Q30M PRN IV 05/22/25 16:00 Acetaminophen 650 mg Q4HP PRN PO 05/22/25 21:45 05/22/25 23:07 650 MG Atorvastatin Calcium 20 mg HS PO 05/22/25 22:00 05/23/25 21:35 20 MG Tramadol HCl 50 mg Q6HP PRN PO 05/23/25 10:45 05/24/25 15:54 50 MG objective General: the patient is well developed and nourished. No acute distress. MUSCULOSKELETAL EXAM: Status post right metatarsal amputation MENTAL STATUS: Awake and alert. Oriented to person, place, time and general circumstances. Able to give personal history. SPEECH, LANGUAGE, HIGHER CORTICAL FUNCTION: no aphasia or dysathria. CRANIAL NERVES: Pupils are equal, round and reactive. EOMs full and conjugate. Questionable horizontal nystagmus triggered by gazing to either left or right side. Facial sensation intact in all three divisions bilaterally. Mandibular strength intact. Facial muscles symmetrical and strength intact. SENSATION: Sensation to touch and pinprick is normal. MOTOR: Normal tone in the upper and lower extremity. Normal muscle bulk. No fasciculations. No abnormal movements or posturing. Muscle strength of the major groups in the extremities is 5/5. REFLEXES: Deep tendon reflexes normal and symmetrical. No pathological reflexes. CEREBELLAR/COORDINATION: Finger-nose showed mild right intentional tremor GAIT/STATION: deferred. laboratory and microbiology Laboratory Tests 05/23/25 05:39 Test 05/23/25 05:39 Range/Units Serum Glucose 99 74-106 mg/dL Problem List Acute vertigo Acute gait disturbance Acute persistent headache Right cerebellum stroke Atrial fibrillation Assessment/Plan Monitoring Supportive treatment Telemetry Xarelto 20 mg daily Lipitor 40 mg daily Tylenol 650 mg q.6 hours p.r.n. for headache Up to chair Physical therapy More recommendation per clinical course This medical document was created using an electronic medical record system with [facility] dictation system. Although this document has been carefully reviewed, there may still be some phonetic and typographical errors. These areas are purely typographical due to imperfections of the software programs, and do not reflect any compromise in the patient's medical care Prognosis poor Plan discussed with: Patient, Other DAIJA RAHMAN MD May 24, 2025 21:44
[2025-05-24] MEDS: ATORVASTATIN 20 MG TAB PO SCH (22:11)
[2025-05-25 01:00] VITALS: BP 109/74; PULSE 61; RESP 12; TEMP 97.2; O2SAT 95
[2025-05-25 05:00] VITALS: BP 125/76; PULSE 61; RESP 16; TEMP 97.4; O2SAT 93
[2025-05-25 08:00] VITALS: PULSE 63
[2025-05-25 08:44] VITALS: BP 115/65; PULSE 64; RESP 17; TEMP 97.6; O2SAT 93
--- NOTE | 2025-05-25 13:32 | DVHPN2 ---
Subjective The patient is seen and examined at bedside. The patient is supposed to be discharged yesterday however unable to get home because PT service was not set up by social media marketing manager yet. Today, is set up. Reviewed: Care Plan, H&P, Labs, Medications Changes from previous H/P or p: No Changes General: Per HPI Eyes: No Pain, No Vision change, No Conjunctivae inflammation, No Eyelid inflammation, No Other, No Redness ENT: No Ear pain, No Ear discharge, No Nose pain, No Nose discharge, No Nose congestion, No Mouth pain, No Mouth swelling, No Throat pain, No Throat swelling, No Other Cardiovascular: No Chest Pain, No Palpitations, No Orthopnea, No Paroxysmal Noc. Dyspnea, No Edema, No Lt Headedness; Other (Dizzy spell, dyspnea on exertion.) Respiratory: No Cough, No Dry, No Shortness of breath, No SOB with excertion, No Wheezing, No Hemoptysis, No Pleuritic Pain, No Sputum, No Other Gastrointestinal: Nausea; No Vomiting; Abdominal Pain, Diarrhea; No Constipation, No Melena, No Hematochezia, No Other Genitourinary: No Dysuria, No Frequency, No Incontinence, No Hematuria, No Retention, No Other Musculoskeletal: No other, No neck pain, No shoulder pain, No arm pain, No back pain, No hand pain, No leg pain, No foot pain Skin: No Rash, No Lesions, No Jaundice, No Bruising, No Other Objective Vitals Vital Signs Date Time Temp Pulse Resp B/P (MAP) Pulse Ox O2 Delivery O2 Flow Rate FiO2 05/25/25 08:44 97.6 64 17 115/65 (82) 93 97.6 05/25/25 08:00 Room Air* 0 21 Intake/Output Intake and Output 05/25/25 07:00 Intake Total 2100 ml Balance 2100 ml Intake Oral 2100 ml # Voids 4 General Appearance: Alert, Oriented X3, Cooperative, mild distress HEENT: Atraumatic, PERRLA Lungs: Clear to auscultation, Normal air movement Cardiovascular: Normal S1, Normal S2, Other (Paroxysmal atrial fibrillation. Right bundle branch block) Abdomen: Normal bowel sounds, Soft, No tenderness Back: Flank Tenderness, Midline Tenderness Musculoskeletal: Normal sensory function, Normal motor function Neuro: Normal speech Skin: Dry, Intact Psych/Mental Status: Mental status NL, Mood NL Laboratory Results Laboratory Tests 05/23/25 05:39 Urinalysis Test 05/22/25 12:55 Urine Color Colorless (Yellow) Urine Clarity Clear (Clear) Urine pH 7.0 (5.0-9.0) Urine Specific [place] 1.005 (1.001-1.035) Urine Protein Negative (Negative) Urine Ketones Negative (Negative) Urine Blood Negative /uL (Negative) Urine Nitrite Negative (Negative) Urine Bilirubin Negative (Negative) Urine Urobilinogen Normal mg/dL (Negative) Urine Leukocyte Esterase Negative /uL (Negative) Urine RBC 1 /hpf (0 - 4) Urine Microscopic WBC < 1 /HPF (0-5) Urine Squamous Epithelial Cells None seen /hpf (<5) Urine Bacteria None seen /hpf (None Seen) Urine Glucose Normal mg/dL (Normal) Labs and/or images reviewed: Labs reviewed by me Assessment/Plan Assessment/Plan -rule out CVA -rule out acute diastolic heart failure -paroxysmal atrial fibrillation -primary hypertension -dyslipidemia -obesity -intractable headache Continuing current management. Discharge today to home Continuing with hypertensive medication Continuing with hyperlipidemia medication and atrial fibrillation medication This medical document was created using an electronic medical record system with [employer] direct computerized dictation system. Although this document has been carefully reviewed, there may still be some phonetic and typographical errors. These areas are purely typographical due to imperfections of the software programs, and do not reflect any compromise in the patient's medical care. Plan discussed with: Patient Date of Service: May 25, 2025 Billing Provider: JUAN ABREU MD Common Visit Codes: [id number] INP/OBS CARE(HIGH) JUAN ABREU MD May 25, 2025 13:32
== END 2025-05-25 11:35 | disposition home health service (06) | DRG 64 ==
LOC: ER 10:01 → OVERFLOW 15:46 → TELE-CENTR 21:05
PROVIDERS: ADMIT Nurse Practitioner Acute Care; ATTEND Nurse Practitioner Acute Care
DX: I63.541 Cerebral infarction due to unspecified occlusion or stenosis of right cerebellar artery (principal); I50.31 Acute diastolic (congestive) heart failure; E86.0 Dehydration; E78.5 Hyperlipidemia, unspecified; E66.9 Obesity, unspecified; I48.0 Paroxysmal atrial fibrillation; I11.0 Hypertensive heart disease with heart failure; M06.9 Rheumatoid arthritis, unspecified; R26.9 Unspecified abnormalities of gait and mobility; K76.0 Fatty (change of) liver, not elsewhere classified; Z88.5 Allergy status to narcotic agent; Z88.1 Allergy status to other antibiotic agents; Z79.899 Other long term (current) drug therapy; Z90.711 Acquired absence of uterus with remaining cervical stump; Z82.49 Family history of ischemic heart disease and other diseases of the circulatory system; Z79.01 Long term (current) use of anticoagulants; Z86.73 Personal history of transient ischemic attack (TIA), and cerebral infarction without residual deficits; Z68.39 Body mass index [BMI] 39.0-39.9, adult
CPT/HCPCS: 36415; 70450; 70551; 80048; 80053; 80061; 80307; 81001; 82962; 83036; 84484; 85025; 93005; 93306; 93886; 96360; 97163; G0378